=== PATIENT | male | born 1955 | race American Indian/Alaskan Native ===

== ENCOUNTER 2016-12-12 10:03 | Outpatient (CLI) | payer OTHER ==
--- NOTE | 2016-12-12 11:57 | XRay Report ---
LUMBOSACRAL SPINE, 3 VIEWS: History: Back pain Findings: The vertebral bodies, disk spaces and posterior elements are intact. No compression deformity or malalignment. Mild degenerative disc disease at L3-4 and L5-S1 noted. The SI joints are symmetric and unremarkable. Impression: 1. No evidence for acute injury to the lumbar spine.
== END 2016-12-12 10:04 | disposition home or self-care (01) ==
LOC: XRAY 10:03
PROVIDERS: ATTEND Internal Medicine
DX: M51.37 Other intervertebral disc degeneration, lumbosacral region (principal); C61 Malignant neoplasm of prostate; I10 Essential (primary) hypertension; F41.9 Anxiety disorder, unspecified; G47.00 Insomnia, unspecified
CPT/HCPCS: 72100

== ENCOUNTER 2016-12-31 10:18 | Outpatient (CLI) | payer OTHER ==
--- NOTE | 2016-12-31 11:07 | XRay Report ---
RIGHT HIP RADIOGRAPHS INDICATION: Prostate cancer, back pain. COMPARISON: None similar. FINDINGS: An AP pelvic radiograph with frog-leg projection of the right hip demonstrate intact articulation. Imaged bilateral SI and hip joints appear intact. Bilateral acetabular degenerative spurring. Few surgical clips project in the region of the prostate. Nonobstructive bowel gas pattern. CONCLUSION: No acute radiographic abnormality with few other findings, as above. Thank you for the opportunity to participate in this patient's care.
== END 2016-12-31 10:19 | disposition home or self-care (01) ==
LOC: XRAY 10:18
PROVIDERS: ATTEND Internal Medicine
DX: M25.851 Other specified joint disorders, right hip (principal); M54.9 Dorsalgia, unspecified; C61 Malignant neoplasm of prostate; I10 Essential (primary) hypertension; G47.00 Insomnia, unspecified; F41.9 Anxiety disorder, unspecified; T81.89XA Other complications of procedures, not elsewhere classified, initial encounter

== ENCOUNTER 2020-08-10 06:02 | Day surgery (SDC) | payer OTHER ==
[2020-08-10] MEDS ORDERED: LACTATED RINGERS 1,000 ML IV SCH (06:45)
[2020-08-10] MEDS ORDERED: ACETAMINOPHEN 500 MG TAB ONE (07:13)
[2020-08-10] MEDS ORDERED: CELECOXIB 200 MG CAP ONE (07:14)
[2020-08-10] MEDS ORDERED: MAGNESIUM OXIDE 400 MG TAB PO ONE (07:14)
--- NOTE | 2020-08-10 07:18 | Anesthesia Day of Surgery ---
Anesthesia Day of Surgery - Day of Surgery Patient Examined: Yes Patient H&P Reviewed: Yes Patient is NPO: Yes
--- NOTE | 2020-08-10 07:19 | Anesthesia Consultation ---
Anesthesia Consult and Med Hx Date of service: 08/10/20 - Airway Anesthetic Teeth Evaluation: Chipped ROM Head & Neck: Adequate Mental/Hyoid Distance: Adequate Mallampati Class: Class II Intubation Access Assessment: Good - Pre-Operative Health Status ASA Pre-Surgery Classification: ASA2 Proposed Anesthetic Plan: General - Pulmonary Hx Smoking: No Hx Respiratory Symptoms: No (+2FS) - Cardiovascular System Hx Hypertension: Yes - Central Nervous System Hx Psychiatric Problems: No - Gastrointestinal Hx Gastroesophageal Reflux Disease: No - Endocrine Hx Renal Disease: No Hx Liver Disease: No Hx Non-Insulin Dependent Diabetes: No - Hematic Hx Sickle Cell Disease: No - Other Systems Hx Cancer: Yes
[2020-08-10] MEDS ORDERED: fentaNYL 100 MCG/2 ML INJ ONE (07:25)
[2020-08-10] MEDS ORDERED: propofoL 200 MG/20 ML VIAL IV ONE (07:25)
[2020-08-10] MEDS ORDERED: dexAMETHasone 20 MG/5 ML VIAL ONE (07:25)
[2020-08-10] MEDS ORDERED: LIDOCAINE MPF (2%) 20 MG/1 ML VIAL 5 ML ONE (07:25)
[2020-08-10] MEDS ORDERED: ceFAZolin/STERILE WATER 2 GM/20 ML SYRINGE IV NR (07:30)
[2020-08-10] MEDS ORDERED: KETOROLAC 30 MG/1 ML INJ ONE (08:00)
[2020-08-10] MEDS ORDERED: ePHEDrine SULFATE 50 MG/1 ML INJ ONE (08:10)
[2020-08-10] MEDS ORDERED: PHENYLEPHRINE/NS 1,000 MCG/10 ML SYRINGE (OR USE) IV ONE (08:19)
[2020-08-10] MEDS ORDERED: HYDROmorphone 1 MG/1 ML INJ IV PRN ×2 (08:30)
[2020-08-10] MEDS ORDERED: ONDANSETRON 4 MG/2 ML INJ IV PRN (08:30)
[2020-08-10] MEDS ORDERED: HYDROmorphone 1 MG/1 ML INJ ONE (08:32)
[2020-08-10] MEDS ORDERED: LACTATED RINGERS 1,000 ML ONE (08:34)
[2020-08-10] MEDS ORDERED: SODIUM CHLORIDE 0.9% IRR 1,500 ML BOTTLE IR ONE (08:35)
--- NOTE | 2020-08-10 09:06 | Short Stay Summary ---
Short Stay Documentation Date of service: 08/10/20 - History H&P: obtained from office - Allergies and Medications Current Medications: Allergies No Known Allergies Allergy (Verified 08/10/20 06:34) Home Medications Medication Instructions Recorded Confirmed Last Taken Type amLODIPine 10 mg PO DAILY PRN 08/09/20 08/10/20 08/10/20 05:30 History Active Medications Cefazolin Sodium (Cefazolin/Sterile Water 2 Gm/20 Ml Syringe) 2 gm IV PREOP NR Stop: 08/10/20 21:00 Hydromorphone HCl (Hydromorphone 1 Mg/1 Ml Inj) 0.5 mg IV Q10MIN PRN PRN Reason: Pain , Severe (7-10) Stop: 08/10/20 17:00 Hydromorphone HCl (Hydromorphone 1 Mg/1 Ml Inj) 0.25 mg IV Q10MIN PRN PRN Reason: Pain, Moderate (4-6) Stop: 08/10/20 17:00 Lactated Ringer's (Lactated Ringers) 1,000 mls @ 125 mls/hr IV DIRECT DAVID Last Admin: 08/10/20 07:00 Dose: 125 mls/hr Documented by: Ondansetron HCl (Ondansetron 4 Mg/2 Ml Inj) 4 mg IV ONCE PRN PRN Reason: Nausea And Vomiting Stop: 08/10/20 13:00 - Brief post op/procedure progress note Date of procedure: 08/10/20 Pre-op diagnosis: rt hydrocele Post-op diagnosis: same Procedure: rt hydrocelectomy wit medina drain Anesthesia: GETA Surgeon: PRESTON POSADAS Estimated blood loss: minimal Pathology: list (sac) Specimen disposition: to lab Condition: stable - Hospital course Hospital course: garett & benigno on chart - Disposition Condition at discharge: Stable Disposition: DC-01 TO HOME OR SELFCARE Short Stay Discharge Plan Follow up with: NEAL AGUDELO MD [Primary Care Provider] - 7 Days
--- NOTE | 2020-08-10 09:11 | Operative Report ---
PREOPERATIVE DIAGNOSIS: Right complex hydrocele. POSTOPERATIVE DIAGNOSIS: Right complex hydrocele. PROCEDURE: Hydrocelectomy with Cosme drain. SURGEON: Isidro Tejada MD ANESTHESIA: General. ESTIMATED BLOOD LOSS: Minimal. FLUIDS: Crystalloid. COMPLICATIONS: No complications. INDICATIONS: This patient is a 65-year-old gentleman referred by Dr. Naveen Arambula for evaluation of his scrotal mass. The patient was noted to have a hydrocele years ago and underwent repair at [facility]. The mass returned. Ultrasound revealed a complex hydrocele baseball size. Discussed options. The patient agreed to proceed with surgical intervention. DESCRIPTION OF PROCEDURE: The patient was taken to the operative suite, placed in a supine position. After adequate general anesthesia, he was prepped and draped in a sterile fashion. Right transverse incision was made. Sharp dissection was taken down to the tunica vaginalis. There were areas of scar tissue with matted sac and loculated. Using the Bovie, the sac was entered, multiple sacs were entered, drainage of serosanguineous fluid was performed. The sac was then opened up and excised and sent for routine pathologic evaluation. A viable testicle could be appreciated as well as vas deferens. A [place] drain was brought out through a separate stab incision and placed in the areas of the testicle. Adequate hemostasis was achieved. [place] layer was then closed with 2-0 chromic in a running fashion. Skin was closed with 3-0 chromic in an interrupted fashion. The patient tolerated the procedure well. Fluffs, scrotal support was placed. He was extubated and taken to recovery room. [facility] [place]. JOB# [id number] [facility]
[2020-08-10 10:06] VITALS: BP 145/84
--- NOTE | 2020-08-10 11:54 | Post Anesthesia Evaluation ---
- Post Anesthesia Evaluation Patient Participated: Yes Airway Patent: Yes Stable Respiratory Function: Yes Nausea/Vomiting: No Temp > 96.8F: Yes Pain Manageable: Yes Adequeate Hydration: Yes Anesthesia Complications: No Block Receding Appropriately: Not Applicable Patient on Ventilator: No
== END 2020-08-10 06:03 | disposition home or self-care (01) ==
LOC: OR 06:02
PROVIDERS: ATTEND Urology
DX: N43.2 Other hydrocele (principal); I10 Essential (primary) hypertension; Z85.46 Personal history of malignant neoplasm of prostate; Z79.899 Other long term (current) drug therapy; Z98.890 Other specified postprocedural states
CPT/HCPCS: 55040; 88302; J0690; J1100; J1170; J1885; J2370; J2405; J2704; J3010; J7120